=== PATIENT | male | born 1975 | race Caucasian/White ===

== ENCOUNTER 2017-06-15 13:12 | Emergency (ER) | payer BC ==
[~2017-06-15] VITALS: Ht 188 cm; Wt 108.1 kg
[2017-06-15 13:21] VITALS: TEMP 37; Ht 188 cm; Wt 108.1 kg
--- NOTE | 2017-06-15 13:53 | EMERGENCY ROOM VISIT NOTE ---
History First contact with patient: 13:25 Chief Complaint: RECTAL PAIN Stated Complaint: HEMORRHOID - SEVERE Nursing Triage Summary: pt reports hemorrhoid unsure if thrombosed History of Present Illness The patient is a 41 year old male who presents to the Emergency Room via private vehicle accompanied by female with complaints of "hemorrhoid-severe". The patient states that this past Sunday he noticed he developed a hemorrhoid. He states that the pain has been worsening. He states he has tried sitz baths, witch stefano, and Preparation H. He feels that today it is slightly improved. He questions if it's thrombosed and should be drained. He rates his overall pain as a 5/10. Review of Systems A complete 6-point Review of Systems was discussed with the patient, with pertinent positives and negatives listed in the History of Present Illness. All remaining Review of Systems questions can be considered negative unless otherwise specified. Past Medical/Surgical History Non contributory Family History Non contributory Social History Smoking Status: Never Smoker Pt. lives locally Current/Historical Medications Scheduled PRN Oxycodone Ir (Roxicodone Ir), 1-2 TAB PO Q4H PRN for Pain Physical Exam Vital Signs Date Time Temp Pulse Resp B/P (MAP) Pulse Ox O2 Delivery O2 Flow Rate FiO2 06/15/17 14:30 82 20 140/87 98 06/15/17 13:21 37.0 81 18 153/96 97 Room Air Physical Exam VITAL SIGNS - Vital signs and nursing notes were reviewed. Stable. Hypertensive. GENERAL -41-year-old male appearing his stated age who is in no acute distress. Communicates well with provider and answers questions appropriately. SKIN - Without rashes. Visualization of the anus reveals a hemorrhoid that is in the 2 o'clock position with the patient prone. It is partially thrombosed. The superior most area is still fluctuant, with evidence of fresh blood. No draining. No fissure. Medical Decision & Procedures Medical Decision Patient was seen and evaluated as above. He presents to us today with an obvious external 2'olock hemorrhoid that is beginning to be thrombosed but has yet to fully thrombose. Benefit versus risk of draining was discussed with the patient, and I informed him that because it is only 2 days old, and not fully thrombosed if I were to cut into this to drain this he could continue to bleed which is a high risk. Decision was made to continue conservative management to watch and wait. I will add oxycodone for pain as well as a compounded formula of 0.2% nitroglycerin ointment to help with muscle spasms make at local [facility]. Discussion was had with the ED pharmacist regarding making this medication, and the local [facility] notes they would be happy to make this. A prescription was written and he is to take itthere. He is already taking qezm-xle-iyjeeyr stool softeners as well. He was educated to follow with family doctor, return with worsening. No red flag identified in the [place] drug monitoring system. He was educated upon management, had questions and provided discharge, and was discharged home in good condition. In evaluation treatment of this patient following differential diagnoses were entertained: Hemorrhoid, anal fissure, among others. Impression Primary Impression: External hemorrhoid Departure Information Dispostion Home / Self-Care Condition GOOD Prescriptions Oxycodone Ir (Roxicodone Ir) 5 Mg Tab 1-2 TAB PO Q4H Y for Pain, #20 TAB For Initial Treatment Prov: Yusef Fischer PA-C 06/15/17 Referrals No Doctor, Assigned (PCP) Patient Instructions My [facility] Additional Instructions You have been treated in the Emergency Department for external (almost) thrombosed hemorrhoid. This may need to either ripen so it can be drained or it will go away. Unfortunately, because it is still showing evidence of having some fresh blood in it, I fear causing you more harm from trying to drain this at this time. However, it may change. You have been prescribed Oxy IR to be used for pain control. This is a narcotic medication. You cannot drive or consume alcohol while on this medicine. This medicine should only be used for pain that cannot be controlled with over-the- counter pain medicines. Nitro ointment 1-2 times per day for up to 7 days. PLEASE NO LONGER THAN 7 days. For pain control, you can use the following alnl-mos-gfnmwzh medicines (if >12 yo): - Regular strength (325mg/tab) Tylenol (acetaminophen) 2 tabs every 4-6 hours as needed. Do not exceed 12 tablets in a 24 hour period. Avoid taking more than 3 grams (3000 mg) of Tylenol per day. This includes any other sources of acetaminophen you may take on a regular basis. - Regular strength (200 mg/tab) Advil (ibuprofen) 1-2 tabs every 4-6 hours as needed. Do not exceed a dose of 3200 mg per day. Please follow up with family doctor for further evaluation and management
[2017-06-15] MEDS ORDERED: OXYC1TAB3 PO (14:17)
[2017-06-15 14:30] VITALS: BP 140/87; PULSE 82; O2SAT 98
== END 2017-06-15 14:32 | disposition home or self-care (01) ==
LOC: C.EDB 13:14 → C.EDD 14:32
DX: K64.4 Residual hemorrhoidal skin tags (principal)

== ENCOUNTER 2017-06-20 13:27 | Emergency (ER) | payer BC, OTHER ==
[~2017-06-20] VITALS: Ht 188 cm; Wt 108.1 kg
[~2017-06-20 13:27] MED LIST: OXYC1TAB3 PO
[2017-06-20 13:28] VITALS: Ht 188 cm; Wt 108.1 kg
[2017-06-20] MEDS ORDERED: LIDO5CRE10 RE (14:09)
--- NOTE | 2017-06-20 14:11 | EMERGENCY ROOM VISIT NOTE ---
History First contact with patient: 13:36 Chief Complaint: RECTAL BLEEDING Stated Complaint: BLEEDING HEMORROID Nursing Triage Summary: pt reports he was seen here on sunday for hemorrhoid. last night rutured or started bleeding unable to get in with pcp came here for eval History of Present Illness The patient is a 41 year old male who presents to the Emergency Room with complaints of a possibly ruptured hemorrhoid. The patient developed a hemorrhoid last week. He was seen here 5 days ago and evaluated. At that point , there was no thrombosis that needed to be drained. He was prescribed nitroglycerin cream, which she has been applying twice daily. The patient became concerned this morning when he noticed blood in his underwear. He describes it as possibly a few tablespoons. He denies any significant pain or itching. He has not taken any of the pain medication prescribed. The patient has an appointment with his primary care physician next week for further evaluation. Review of Systems 6 system review negative. Please see pertinent positives in the history of present illness section. Past Medical/Surgical History Otherwise healthy Social History Smoking Status: Never Smoker Current/Historical Medications Scheduled Lidocaine (Anorectal) (Rectasmoothe), 1 APPLN RE Q6H Physical Exam Vital Signs Date Time Temp Pulse Resp B/P (MAP) Pulse Ox O2 Delivery O2 Flow Rate FiO2 06/20/17 14:22 36.7 84 19 140/92 98 06/20/17 13:28 36.7 86 18 143/98 99 Room Air Physical Exam VITALS: Vitals are noted on the nurse's note and reviewed by myself. Vital signs stable. GENERAL: 41-year-old male, in no acute distress, nondiaphoretic, well-developed well-nourished. SKIN: The skin was without rashes, erythema, edema, or bruising. HEAD: Normocephalic atraumatic. RECTAL: Approximately 2 cm external hemorrhoid noted with a very small, approximately 1 mm area of thrombosis. No active bleeding. MUSCULOSKELETAL: Strength 5/5 throughout. NEURO: Patient was alert and oriented to person place and time. Normal sensation to touch. No focal neurological deficits. Medical Decision & Procedures ED Course The patient was seen and examined Discharge instructions were reviewed, and he was discharged in good condition Medical Decision Differential diagnosis: External hemorrhoid, thrombosed hemorrhoid, nonbleeding hemorrhoid, internal hemorrhoids This patient is a 41-year-old male that returns to the emergency department with concern that his external hemorrhoid is no bleeding. On exam, he does have an approximate 2 cm external hemorrhoid with a very small area of thrombosis. I did not see a benefit of trying to excise the thrombus. I believe the bleeding risk is too high. The patient will continue to do conservative management with sitz baths. He will continue his nitroglycerin cream and sitz baths. He was also provided a prescription for lidocaine cream to apply every 6 hours as needed for discomfort. Patient has a follow-up appoint with his primary care physician next week. If need be, he will be referred to either a GI/general surgeon specialist. He will return to the emergency department over the weekend with any new, worsening or concerning symptoms; especially, uncontrolled bleeding. This chart was completed in part utilizing [employer] Speech Voice Recognition software. Attempts were made to minimize the grammatical errors, random word insertions, pronoun errors and incomplete sentences. Any formal questions or concerns about the content, text or information contained within the body of this dictation should be directly addressed to the provider for clarification. Medication Reconcilliation Current Medication List: was personally reviewed by me Impression Primary Impression: External hemorrhoid Departure Information Dispostion Home / Self-Care Condition GOOD Prescriptions Lidocaine (Anorectal) (Rectasmoothe) 5 % Cre 1 APPLN RE Q6H for Itching, #1 TUBE Prov: Lisa Longo PA-C 06/20/17 Referrals Brandee Ramos MD (PCP) Patient Instructions Hemorrhoids, My [facility] Additional Instructions Please continue nitroglycerin cream as prescribed. Do not exceed this for 7 days. Lidocaine cream may be applied every 6 hours as needed for itching and discomfort. It is important to keep the area clean. Please wash with soap and water twice daily. Please perform sitz bath 2-3 times daily if possible. Please follow-up with your primary care physician as scheduled next week. Please do not hesitate to return to the emergency department with any new, worsening or concerning symptoms; especially, significant rectal bleeding or pain.
[2017-06-20 14:22] VITALS: BP 140/92; PULSE 84; TEMP 36.7; O2SAT 98
== END 2017-06-20 14:23 | disposition home or self-care (01) ==
LOC: C.EDB 13:29
DX: K64.5 Perianal venous thrombosis (principal)

== ENCOUNTER 2024-04-03 05:53 | Observation (INO) ==
--- NOTE | 2024-03-27 14:56 | Anesthesiology Consultation ---
Date of Service March 27, 2024 Assessment & Plan (1) Encounter for pre-operative examination: - Infectious disease screening: Per assessment on 03/27/24- No known recent infectious disease contacts or current infectious disease symptoms. - S/P cysto, laser stone, stent (02/14/24): LMA igel #5 at [facility] Chart Review Chart Review: Acceptable Risk for Surgery and Patient NOT seen in Pre Admission Testing History Surgery Operation Date: 04/03/24 07:30 Proposed Procedures p Robotic Laparoscopic Assisted Partial Nephrectomy, Possible Radical Nephrectomy (Right) - Colton Freire MD Height/Weight Height: 6 ft 2 in Weight: 102.058 kg Allergies Allergy/AdvReac Type Severity Reaction Status Date / Time No Known Allergies Allergy Verified 03/27/24 14:24 Medications Home Medications Medication Instructions Recorded Confirmed Last Taken acetaminophen 325 mg capsule 650 mg PO QID PRN Pain 02/14/24 03/27/24 02/13/24 (Tylenol) Past Medical History Medical 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 History of COVID-19 (06/2020) asymptomatic Hx of renal calculi Right renal mass Dx 01/29/24, following [facility] Past Family History Family History Father FHx: lung cancer mets to the brain Other No family history of adverse response to anesthesia Past Surgical History Surgical History 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, middle finger S/P cystoscopy with ureteral stent placement (02/14/24) left side Social History Smoking Status: Never smoker Do You Dip or Chew Tobacco: No Hx Alcohol Use: Yes alcohol intake frequency: a few times a month Hx Substance Use: No substance use type: does not use Lab Results Anesthesia Preop Results Results Anesthesia Widget: WBC 4.59 K/ul (4.8-10.8) L 03/25/24 Hgb 12.8 g/dl (14.0-18.0) L 03/25/24 Hct 37.1 % (42.0-52.0) L 03/25/24 Plt 207 K/uL (130-400) 03/25/24 Na 138 mmol/L (136-145) 03/25/24 K 4.1 mmol/L (3.5-5.1) 03/25/24 Cl 103 mmol/L (98-107) 03/25/24 CO2 29 mmol/L (21-32) 03/25/24 BUN 17 mg/dl (6-23) 03/25/24 Creat 0.89 mg/dl (0.6-1.4) 03/25/24 Glucose Level 100 mg/dl (70-99(Fasting)) H 03/25/24 Urine Color Yellow 01/29/24 Urine Appearance Cloudy (Clear) A 01/29/24 Urine pH 7.0 (4.5-7.5) 01/29/24 Urine Specific [place] 1.020 (1.000-1.030) 01/29/24 Urine Protein Negative (Negative) 01/29/24 Urine Glucose (UA) Negative (Negative) 01/29/24 Urine Ketones Negative (Negative) 01/29/24 Urine Blood Trace (Negative) H 01/29/24 Urine Nitrite Negative (Negative) 01/29/24 Urine Bilirubin Negative (Negative) 01/29/24 Urine Urobilinogen Negative (Negative) 01/29/24 Urine Leukocyte Esterase Negative (Negative) 01/29/24 Urine WBC (Auto) 0-5 /hpf (0-5) 01/29/24 Urine RBC (Auto) 11-20 /hpf (0-2) H 01/29/24 Urine Hyaline Casts (Auto) 0-2 /lpf (0-2) 01/29/24 Urine Epithelial Cells (Auto) 0-2 /hpf (0-2) 01/29/24 Urine Bacteria (Auto) None Seen (None Seen) 01/29/24 Testing Laboratory Results Urine culture (03/25/24): Gardnerella-like bacilli Electrocardiogram Date: 01/29/24 SB at 55bpm. "Otherwise normal ECG" Other Testing Abdomen/Pelvis CT Date: 01/29/24 IMPRESSION: Obstructive left nephrolithiasis with associated hydronephrosis. Enhancing right renal mass concerning for renal cell carcinoma. Chest CT Date: 03/24/24 FINDINGS: No enlarged axillary, mediastinal or hilar lymph nodes are present. The size of the heart is normal. No pericardial effusion. The central airways are patent. There are no suspicious pulmonary nodules. No pneumothorax or pleural effusion is present. There is no consolidation. No suspicious lesions within the bony thorax are present. A 1.3 cm hypodense segment 7 hepatic lesion is unchanged since abdominal CT. This may have a peripheral enhancing component. This is likely benign and may reflect a hemangioma. IMPRESSION: No evidence for metastatic disease within the chest.
[2024-04-03] MEDS ORDERED: bisacodyL 5 MG TABEC PO PRN (06:00)
[2024-04-03] MEDS: LR 15ML/HR IV SCH (06:42)
[2024-04-03] MEDS ORDERED: ATROPINE SULFATE 0.1 MG/ML 10ML SYR IV PRN (07:00)
[2024-04-03] MEDS ORDERED: HYDROmorphone INJ 1 MG/ML SYRINGE IV PRN (07:00)
[2024-04-03] MEDS ORDERED: DROPERIDOL 5 MG/2 ML VIAL IV PRN (07:00)
[2024-04-03] MEDS ORDERED: ePHEDrine sulfate 50 MG/ML AMP IV PRN (07:00)
--- NOTE | 2024-04-03 07:07 | History & Physical Report ---
Date of Service April 03, 2024 Assessment & Plan (1) Right renal mass: Plan: We reviewed his right renal mass as well as the plan for right robot-assisted partial nephrectomy. We reviewed risks and benefits of surgery. We explicitly discussed the possibility of right radical nephrectomy. He expressed understanding and would like to proceed. History of Present Illness Primary Care Provider: Brandee Ramos MD Is a 48-year-old male followed by urology for nephrolithiasis and a right renal mass. He presents to the OR today for right partial nephrectomy. He denies any changes in his health. Allergies Allergy/AdvReac Type Severity Reaction Status Date / Time No Known Allergies Allergy Verified 04/03/24 06:19 Home Medications Medication Instructions Recorded Confirmed Type acetaminophen 325 mg capsule 650 mg PO QID PRN Pain 02/14/24 04/03/24 History (Tylenol) metronidazole 500 mg tablet 500 mg PO Q12H 7 days #14 tabs 03/28/24 04/03/24 Rx Past Med/Surg History Problem List Encounter for pre-operative examination External hemorrhoid (Acute) Medical History Elliptocytosis (congenital) Dx as infant No current issues History of COVID-19 (06/2020) asymptomatic Hx of renal calculi Right renal mass Dx 01/29/24, following [facility] Surgical History 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, middle finger S/P cystoscopy with ureteral stent placement (02/14/24) left side Family History Father FHx: lung cancer mets to the brain Other No family history of adverse response to anesthesia Social History (Updated 02/04/24 @ 14:41 by Patricio Ragland) Smoking Status: Never smoker Second Hand Exposure: No; Do You Dip or Chew Tobacco: No; Tobacco Cessation Education Requested by Patient: No Hx Alcohol Use: Yes Hx Substance Use: No Preferred Language: [place] Communication Ability: Effective Automobile Racer Required: No Beliefs That Will Affect Care: None marital status: Single Current Living Situation: Spouse current occupational status: employed Other Information That Helps Us Care for You: No Feels Safe at Home: Yes Safety Concerns: Feels Safe At This Time Assistive Devices: None Review of Systems 12 point review of systems negative except for otherwise indicated. Physical Exam Constitutional: well developed and well nourished; no acute distress Eyes: + anicteric sclerae; pupils not irregula r Respiratory: normal respiratory effort; no respiratory distress, does not use accessory muscles and no cough Cardiovascular: well perfused Gastrointestinal (Abdomen): Inspection/Auscultation: abdomen normal to inspection; abdomen not distended Musculoskeletal: Extremities: extremities normal to inspection Skin: normal turgor; no rashes and no lesions Neurologic: moves all extremities and awake Psychiatric: Orientation: alert and oriented x 3 Results & Data Vital Signs (Past 12 Hours) Vital Signs Temp Pulse Resp BP Pulse Ox O2 Del Method 04/03/24 06:21 36.8 C 60 18 130/85 97 Room Air
[2024-04-03] MEDS ORDERED: ONDANSETRON INJ 2 MG/ML 2 ML VIAL ONE (07:08)
[2024-04-03] MEDS ORDERED: DEXAMETHASONE SOD INJ 4 MG/ML VIAL ONE (07:08)
[2024-04-03] MEDS ORDERED: LIDOCAINE 2% 20 MG/ML 5 ML SYR IV ONE (07:08)
[2024-04-03] MEDS ORDERED: PROPOFOL IV EMULSION 10 MG/ML 20 ML VIAL IV ONE ×5 (07:08→10:17)
[2024-04-03] MEDS ORDERED: fentaNYL citrate PF 100 MCG/2 ML VIAL ONE ×2 (07:09→10:02)
[2024-04-03] MEDS ORDERED: MIDAZOLAM HCL 1 MG/ML 2ML VIAL ONE ×2 (07:09→07:35)
[2024-04-03] MEDS ORDERED: KETAMINE HCL 10MG/ML SYR ONE (07:10)
[2024-04-03] MEDS ORDERED: ROCURONIUM BROMIDE 10 MG/ML 5 ML VIAL IV ONE ×4 (07:35→09:58)
[2024-04-03] MEDS: ceFAZolin 2000MG 2,000 MG/15 ML SYR IV SCH ×2 (08:00→16:00)
[2024-04-03] MEDS ORDERED: ACETAMINOPHEN 1000 MG/100 ML IV IV ONE (09:56)
[2024-04-03] MEDS: SURGICEL ABSORB HEMOSTAT 2IN X 14IN TOP ONE (10:43)
[2024-04-03] MEDS: TISSEEL FIBRIN SEALANT 10ML TOP ONE (10:43)
[2024-04-03] MEDS: FLOSEAL HEMOSTATIC MATRIX 10ML TOP ONE (10:43)
[2024-04-03] MEDS ORDERED: SUGAMMADEX SODIUM 200 MG/2 ML VIAL IV ONE (11:18)
[2024-04-03] MEDS: BUPIVACAINE 0.5 % 5 MG/1 ML MPF 30ML VIAL ONE (11:36)
--- NOTE | 2024-04-03 11:50 | Post Operative Brief Note ---
PG Immediate Post Op with CF Date of Surgery April 03, 2024 Pre & Post Diagnosis Operation Date: 04/03/24 07:30 Pre-Op Diagnosis: Renal Mass Post-Op Diagnosis: Renal Mass I identified the patient and participated in the time-out.: Yes Procedure Operation Date: 04/03/24 07:30 Actual Procedures p Robotic Assisted Laparoscopic Right Radical Nephrectomy (Right) - Colton Freire MD Surgeon Colton Freire MD Energy Infrastructure Engineer Kellen Cooper Estimated Blood Loss 10 Findings See Below Mass appeared to be deep within the parenchyma and possibly involving collecting system. Right radical nephrectomy was performed. Specimens Specimen Description: A: Right Kidney Drains Colon Catheter (inserted by Bailey Barrios RN without difficulty, draining clear yellow urine) Anesthesia Type General Complications none Disposition Accompanied Patient To Recovery: Yes Disposition: Recovery Room
[2024-04-03] MEDS ORDERED: HYDROmorphone INJ 0.5 MG/0.5 ML SYR IV PRN (13:05)
[2024-04-03] MEDS ORDERED: ONDANSETRON INJ 2 MG/ML 2 ML VIAL IV PRN (13:05)
[2024-04-03] MEDS ORDERED: oxyCODONE HCL IR 5 MG TAB (IMMEDIATE RELEASE) PO PRN (13:05)
[2024-04-03] MEDS: HYDROmorphone INJ 0.5 MG/0.5 ML SYR IV PRN (13:19)
[2024-04-03] MEDS: oxyCODONE HCL IR 5 MG TAB (IMMEDIATE RELEASE) PO PRN (14:42)
--- NOTE | 2024-04-03 15:52 | Anesthesiology Progress Note ---
Date of Service April 03, 2024 Anesthesia Post Procedure Vital Signs Vital Signs: Temp Pulse Pulse Resp BP Pulse Ox O2 Del Method 04/03/24 14:36 65 16 119/65 95 Room Air 04/03/24 13:36 71 19 124/69 95 Room Air 04/03/24 13:17 72 16 120/73 94 Room Air 04/03/24 13:05 37.1 C 69 17 123/76 94 Room Air 04/03/24 12:30 37.2 C 69 14 132/69 94 Room Air 04/03/24 12:20 72 12 122/65 94 Room Air 04/03/24 12:10 74 17 121/71 98 Oxymask 04/03/24 12:00 72 18 115/71 98 Oxymask 04/03/24 11:50 80 22 119/68 99 Oxymask 04/03/24 11:45 36.2 C L 81 22 114/68 98 Oxymask 04/03/24 06:21 36.8 C 60 18 130/85 97 Room Air O2 Flow Rate 04/03/24 14:36 04/03/24 13:36 04/03/24 13:17 04/03/24 13:05 04/03/24 12:30 04/03/24 12:20 04/03/24 12:10 3.5 04/03/24 12:00 3.5 04/03/24 11:50 3.5 04/03/24 11:45 3.5 04/03/24 06:21 Pain Intensity Right Abdomen: Pain Intensity: 4 Transfer of Care Handoff Completed per policy Notes Mental Status: alert / awake / arousable and participated in evaluation Patient Amnestic to Procedure: Yes Nausea / Vomiting: adequately controlled Pain: adequately controlled Airway Patency, RR, SpO2: stable & adequate BP & HR: stable & adequate Hydration State: stable & adequate Anesthetic Complications: no major complications apparent and Pt Satisfied with anesthetic care
--- NOTE | 2024-04-03 17:37 | Operative Report ---
PG Post Operative Report Pre & Post Diagnosis Operation Date: 04/03/24 07:30 Pre-Op Diagnosis: Renal Mass Post-Op Diagnosis: Renal Mass I identified the patient and participated in the time-out.: Yes Procedure Operation Date: 04/03/24 07:30 Actual Procedures p Robotic Assisted Laparoscopic Right Radical Nephrectomy (Right) - Colton Freire MD Surgeon Colton Freire MD Blood Bank Credit Clerk Kellen Cooper Estimated Blood Loss 10 Findings See Below Specimens Right kidney Drains Colon catheter per urethra Anesthesia Type General Complications none Disposition Accompanied Patient To Recovery: Yes Disposition: Recovery Room Indications This is a 48-year-old male followed by urology for a renal mass that is suspicious for malignancy. He presents to the OR today for surgical removal of his renal mass. Description of Procedure The patient was identified and informed consent was obtained. He was marked on the right side and was brought to the operating room where general anesthesia was initiated. He was placed in a flank position with the right side elevated. All pressure points were carefully padded. A timeout was then performed. A surgical marker was used to draw a line approximately 7 cm to the left of the umbilicus, in the mid clavicular area. Anticipated port sites were marked s tarting approximately 2 fingerbreadths below the costal margin. Subsequent ports were anticipated to be 6 to 7 cm spaced down this line. An incision was made at the second anticipated site, then dissection was carried down to the fascia. A Veress needle was used to obtain access to the peritoneum. Good position was confirmed with a negative aspiration, appropriate drop test and low opening insufflation pressure. The abdomen was then inflated with CO2 to 15 mmHg. The first robotic port was then placed and the camera was inserted. The abdominal cavity was surveyed. There were no injuries to intra-abdominal contents. The remaining 3 robotic ports were placed under direct visualization. A 12 mm seismic survey assistant port was then placed in the midline above the umbilicus. A 5 mm port was placed to act as a liver retractor. The robot was then docked. I reflected the colon along the white line of Toldt to expose Gerota's fascia. The duodenum was Kocherized. Once the colon was sufficiently reflected, the gonadal vessels and left ureter were identified. These were then dissected cephalad to identify the renal hilum. He had 2 renal arteries and a single renal vein. Adequate windows were dissected on all the vessels. I then turned my attention toward the renal mass. The intraoperative ultrasound was then introduced and used to survey this area of the kidney. The mass appeared to be very endophytic and to extend down until it was directly adjacent to or possibly involving the collecting system. Based on his ultrasound examination, I opted to perform a radical nephrectomy. The robotic stapler was introduced and subsequently used to apply a vascular load of salo to both renal arteries and then to the renal vein. There was good hemostasis. The upper pole of the kidney was dissected free using a mixture of cautery and blunt dissection. The lateral aspect was then freed up as well. The lower pole was the final area to be divided. The ureter was clipped and divided and the remaining fat was divided with cautery. At this point the kidney was completely freed up. The robot was dedocked. The lowest robotic incision was extended laterally to be approximately 7 cm. Dissection was carried down to the abdominal cavity. The right kidney was then extracted through this incision. The kidney was sent for pathologic analysis. The incision was then closed using a running 2-0 Vicryl suture to reapproximate the peritoneum. Half percent Marcaine was used to anesthetize all of the incisions. The extraction site was closed in the following fashion: The layer a rafal the internal oblique was reapproximated using a single running 0 Vicryl suture. The external oblique fascia was then closed using interrupted [id number] sutures with 0 Vicryl. The subcutaneous layer was reapproximated with a running 3-0 Vicryl and then the skin was closed using a running subcuticular 4-0 Monocryl. The remaining port sites were closed with buried interrupted 4-0 Monocryl sutures. The patient was then awakened from anesthesia and brought to the PACU in stable condition. All sponge and instrument counts were correct at the end of the case. Of note, ORVILLE Cooper, acted as bedside seismic survey assistant for the majority of the case, helping with initial positioning, access, retraction, dissection and with closing. ORVILLE Aguilar was also present learning to the bedside seismic survey assistant. I attest to the content of the Intraoperative Record and any orders documented therein. Any exceptions are noted below.
[2024-04-03] MEDS: DOCUSATE SODIUM 100 MG CAP PO SCH (21:10)
[2024-04-03] MEDS: HEPARIN SOD 5,000 UNIT/0.5 ML VIAL SQ SCH (21:10)
[2024-04-04 04:46] VITALS: RESP 16
[2024-04-04 07:36] LABS: Basophils # (auto) 0.01 K/uL (0.00-0.20); Basophils % (auto) 0.1 %; Hemoglobin 11.8 g/dl (14.0-18.0); Immature Granulocytes # (auto) 0.04 K/uL (0.01-0.20); Immature Granulocytes % (auto) 0.4 %; Lymphocytes # (auto) 0.93 K/uL (1.20-3.40); Lymphocytes % (auto) 8.9 %; Mean Corpuscular Hemoglobin 29.3 pg (25.0-34.0); Mean Corpuscular Hgb Conc 34.7 g/dL (32.0-36.0); Mean Corpuscular Volume 84.4 fL (80.0-100.0); Mean Platelet Volume 9.6 fL (9.4-12.4); Monocytes # (auto) 0.76 K/uL (0.11-0.59); Monocytes % (auto) 7.2 %; Neutrophils # (auto) 8.76 K/uL (1.40-6.50); Neutrophils % (auto) 83.4 %; Platelet Count 210 K/uL (130-400); RDW Coefficient of Variation 14.1 % (11.5-14.5); RDW Standard Deviation 43.7 fL (36.4-46.3); Red Blood Count 4.03 M/uL (4.70-6.10)
[2024-04-04 07:48] LABS: Calcium 9.3 mg/dl (8.6-10.3); Creatinine Clr Calc Pharmacy 57.6 ml/min; Potassium 4.3 mmol/L (3.5-5.1)
--- NOTE | 2024-04-04 08:51 | Urology Progress Note ---
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 - Doing well, progressing as expected - Afebrile, hemodynamically stable - Post op lab work reviewedcreatinine 2.0, WBC 10.5, hemoglobin 11.8 - Encouraged oral hydration and will repeat BMP around noon - Mild discomfort near incisions, pain adequately controlled - Tolerating regular diet - Encouraged OOB ambulation - Incisions appropriate - Discontinue Colon catheter this morning, monitor for void - Expected clinical course reviewed, all questions answered - Anticipate discharge to home later today if he continues to progress as expected - Will arrange outpatient follow-up for pathology review Admission and Anticipated Discharge Date Admission Date: April 03, 2024 Subjective Patient seen and examined at bedside this morning. He is awake and resting in bed. present. Reports some mild discomfort near incisions. He has been up standing out of bed, but has not ambulated yet. Colon draining clear yellow. Denies nausea or vomiting. Review of Systems Constitutional: as per Subjective / HPI Genitourinary: + as per Subjective / HPI Physical Exam Constitutional: well developed and well nourished; no acute distress Respiratory: normal respiratory effort; no respiratory distress and no labored breathing Gastrointestinal (Abdomen): Inspection/Auscultation: abdomen normal to inspection Musculoskeletal: Head/Neck/Chest: normocephalic Skin: Incisions C/D/I, dressing on supra-umbilical incision is intact without drainage Neurologic: moves all extremities and awake Psychiatric: Orientation: alert and oriented x 3 Genitourinary: Colon patent and draining clear yellow urine Results & Data Vital Signs (Past 12 Hours) Vital Signs Temp Pulse Pulse Resp BP Pulse Ox O2 Del Method 04/04/24 07:38 36.9 C 57 L 16 110/67 94 Room Air 04/04/24 04:42 37 C 61 16 102/43 L 96 Room Air 04/03/24 23:00 36.9 C 61 18 95/56 L 93 Room Air PG Care Time/CCT Total # of Minutes Spent Total Time Spent with Patient: Total time spent is greater than 50% in coordination of care (as documented) at patient's floor/unit and/or counseling patient: Coding Level of Care Code None Diagnoses Right renal mass N28.89
[2024-04-04 11:40] LABS: BUN Creatinine Ratio 14.5 (10-20); Calcium 9.2 mg/dl (8.6-10.3); Creatinine Clr Calc Pharmacy 55.6 ml/min; Potassium 4.1 mmol/L (3.5-5.1)
[2024-04-04 11:46] VITALS: BP 147/88; PULSE 56; TEMP 98.1; O2SAT 95
--- NOTE | 2024-04-04 13:55 | Discharge Summary ---
Date of Service April 04, 2024 Admission HPI Per Admitting Provider Is a 48-year-old male followed by urology for nephrolithiasis and a right renal mass. He presents to the OR today for right partial nephrectomy. He denies any changes in his health. Principal Diagnosis Renal mass Discharge Exam Constitutional well developed and well nourished; no acute distress Respiratory normal respiratory effort; no respiratory distress and no labored breathing Gastrointestinal (Abdomen) Inspection/Auscultation: abdomen normal to inspection Musculoskeletal Head/Neck/Chest: normocephalic Neurologic moves all extremities and awake Psychiatric Orientation: alert and oriented x 3 Discharge Data Allergies Allergy/AdvReac Type Severity Reaction Status Date / Time No Known Allergies Allergy Verified 04/03/24 06:19 Procedures Performed Operation Date: 04/03/24 07:30 Actual Procedures p Robotic Assisted Laparoscopic Right Radical Nephrectomy (Right) - Colton Freire MD Hospital Course (1) Right renal mass: - Patient POD #1 s/p right radical nephrectomy for 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 - Doing well, progressing as expected - Afebrile, hemodynamically stable - Post op lab work reviewedcreatinine 2.0, WBC 10.5, hemoglobin 11.8 - Encouraged oral hydration and will repeat BMP around noon - Mild discomfort near incisions, pain adequately controlled - Tolerating regular diet - Encouraged OOB ambulation - Incisions appropriate - Discontinue Colon catheter this morning, monitor for void - Expected clinical course reviewed, all questions answered - Anticipate discharge to home later today if he continues to progress as expected - Will arrange outpatient follow-up for pathology review - Repeat creatinine stable and patient is voiding after catheter removal - Will plan to repeat BMP next week - Reviewed with Dr. Freire - He is ready for discharge now--orders placed Total Time Total Time Spent Total Time Spent (In Minutes): 29 Discharge Plan Discharge Items Patient Disposition: Home - Self-Care Reason For Visit: Renal Mass Discharge Diagnosis: Renal mass, suspicious for malignancy Activity: Per Instructions section Lifting: No more than 10 pounds Bathing Comment: Okay to shower after discharge, no tub bath or soaking Sexual Activity: Wait until after follow-up appointment Exercise/Sports: Wait until after follow-up appointment Non-emergency contact: Urologist Call non-emergency contact if: your pain is worsening, you have a fever, your temperature is above 101.5, your wound has increased redness, your wound has increased drainage and your wound pain has increased Follow-up/Referrals: Brandee Ramos MD [Primary Care Provider] - Colton Freire MD [Physician] - (TALKED TO EARLE AT OFFICE, OFFICE WILL CALL 04/08/24 WITH A HOSPITAL FOLLOW UP) Diet: Regular Addtl Attending Provider Instructions: The surgery you had was: Robot-assisted radical nephrectomy. Please take all medications as prescribed and keep all follow-ups as scheduled. Please call our office at [phone] with any questions, concerns or need to reschedule appointments for any reason. We are happy to assist you. Please go to the lab to repeat lab work (basic metabolic panel) early next week. Medications: Take Tylenol every 6 hours for baseline pain control If you are prescribed narcotics such as oxycodone, please take it according to the instructions on the label. Activity/Recovering at home: We recommend having someone with you for the first few days after surgery to help care for you. It is okay to shower tomorrow. Please avoid swimming, bathing or using hot tub until incisions are well healed. Avoid driving until you are not requiring pain medication any further. Walk at least a few times a day. Increase your distance, as you feel able. Stairs in your home are okay. Please avoid strenuous or sexual activity until your follow-up. No lifting anything more than 10 pounds for 6 to 8 weeks Use a stool softener (i.e. Colace) to prevent constipation, especially the first two weeks post operatively. You should not be straining/pushing to have a bowel movement. Follow-up: We will have you come to the urology office in 2-4 weeks for a wound check. Call [facility] at [phone] if you experience: Chest pain or trouble breathing (call [phone] or go to the hospital). Fever of 101F or higher Symptoms of infection at incision site, including redness or swelling, warmth, or bad-smelling drainage Pain that is not controlled with medicines Pending Studies at Discharge: Yes (pathology) Stand-Alone Forms: [employer], Smoking Cessation Medications and DC Order Prescriptions: New oxycodone-acetaminophen [Percocet] 5-325 mg tablet 1 tab PO TID PRN (Reason: pain) Qty: 14 0RF Rx Instructions: as directed for post op pain Continued metronidazole 500 mg tablet 500 mg PO Q12H 7 Days Qty: 14 0RF acetaminophen [Tylenol] 325 mg Capsule 650 mg PO QID PRN (Reason: Pain) Discharge Orders: Discharge Order (Routine); Ordered 04/04/24 Ordered By: Jacqueline Eason Admission Data Admit Date/Time: 04/03/24 11:43 Attending Provider: Colton Freire Admit Provider: Colton Freire Primary Care Provider: Brandee Ramos Other Interventions: Discharge Summary Assessment (RN) Last Done: 04/04/24 13:54 Coding Level of Care Code 63399 IN/OBS DISCH 30 MIN/LESS Diagnoses Right renal mass N28.89
== END 2024-04-04 15:23 | disposition home or self-care (01) | DRG 658 ==
LOC: ASU 05:53 → INTOOBSV 11:43 → 3N 11:43